=== PATIENT | male | born 2000 | race Caucasian/White ===

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

== ENCOUNTER 2020-02-03 23:39 | Inpatient (IN) | payer MEDICAID, OTHER ==
[~2020-02-03] VITALS: Ht 172.7 cm; Wt 67.5 kg
[~2020-02-03 23:39] MED LIST changes: +MIRT-89 PO; -MIRT45TA PO
[2020-02-04 01:03] LABS: BASOPHILS % (AUTO) 0.6 % (0.0-2.0); EOSINOPHILS % (AUTO) 2.1 % (1.0-6.0); HEMATOCRIT 43.9 % (41-53); HEMOGLOBIN 14.9 g/dL (13.5-17.5); LYMPHOCYTES # (AUTO) 3.6 K/uL (1.0-4.8); LYMPHOCYTES % (AUTO) 33.9 % (22.0-44.0); MEAN CORPUSCULAR HEMOGLOBIN 29.4 pg (26.0-34.0); MEAN CORPUSCULAR HGB CONC 33.9 G/dL (31.0-37.0); MEAN CORPUSCULAR VOLUME 87 fL (80-100); MONOCYTES % (AUTO) 9.4 % (2.0-9.0); NEUTROPHILS # (AUTO) 5.7 K/uL (1.8-7.7); PLATELET COUNT (AUTO) 494 K/uL (150-450); RED BLOOD CELL COUNT(AUTO) 5.07 MIL/uL (4.50-5.90); RED CELL DISTRIBUTION WIDTH 14.2 % (11.5-14.5)
[2020-02-04 01:12] LABS: ANION GAP 9 mmol/L (8-16); CALCIUM, TOTAL 10.3 mg/dL (8.8-10.5); CARBON DIOXIDE 29 mmol/L (22-29); CHLORIDE 100 mmol/L (98-107); CREATININE 0.91 mg/dL (0.60-1.30); GLOMERULAR FILTR. RATE CALC > 60 mL/min (>60); GLUCOSE,RANDOM 118 mg/dL (70-110); SODIUM SERUM 138 mmol/L (136-145); UREA NITROGEN, BLOOD 28 mg/dL (7-18)
[2020-02-04 01:31] LABS: ALANINE AMINOTRANSFERASE 30 U/L (12-78); ALBUMIN 4.6 g/dL (3.4-5.0); ALKALINE PHOSPHATASE 146 U/L (46-116); ASPARTATE AMINOTRANSFERASE 31 U/L (15-37); BILIRUBIN,TOTAL 0.4 mg/dL (0.1-1.0); TOTAL PROTEIN, SERUM 9.9 g/dL (6.4-8.2)
[2020-02-04 01:59] LABS: AMPHET/METH SCREEN,URINE POSITIVE (NEGATIVE); BARBITURATE SCREEN, URINE NEGATIVE (NEGATIVE); BENZODIAZEPINES SCREEN,URINE NEGATIVE (NEGATIVE); CANNABINOID SCREEN,URINE NEGATIVE (NEGATIVE); COCAINE SCREEN,URINE NEGATIVE (NEGATIVE); METHADONE SCREEN, URINE NEGATIVE (NEGATIVE); OPIATE SCREEN,URINE POSITIVE (NEGATIVE); PHENCYCLIDINE SCREEN,URINE NEGATIVE (NEGATIVE)
[2020-02-04] MEDS ORDERED: ZOLPIDEM TARTRATE 10 MG TABLET PO PRN (02:00)
[2020-02-04 03:32] VITALS: BP 146/93
[2020-02-04 05:00] LABS: APPEARANCE,URINE TURBID (CLEAR); BILIRUBIN,URINE NEGATIVE (NEGATIVE); GLUCOSE, URINE (UA) NEGATIVE (NEGATIVE); KETONES,URINE NEGATIVE (NEGATIVE); LEUKOCYTE ESTERASE ,URINE NEGATIVE (NEGATIVE); NITRATE,URINE NEGATIVE (NEGATIVE); OCCULT BLOOD,URINE NEGATIVE (NEGATIVE); PH,URINE 5.5 (5.0-8.0); PROTEIN,URINE SEE CONFIRM (NEGATIVE); UROBILINOGEN,URINE 0.2 mg/dL (<=1.0)
[2020-02-04 05:12] LABS: SULFOSALICYLIC ACID,URINE 3+ (Negative)
[2020-02-04 05:13] LABS: BACTERIA,URINE Many /HPF (None Seen); RBC,URINE None Seen /HPF (0-2); WBC,URINE 0-2 /HPF (0-5)
[2020-02-04 05:14] LABS: SQUAMOUS EPITHELIAL CELL,UR Few /LPF (None Seen); YEAST,URINE None Seen /HPF (None Seen)
[2020-02-04 08:00] VITALS: BP 131/79
[2020-02-04] MEDS ORDERED: DOCUSATE SODIUM 100 MG CAPSULE PO PRN (12:45)
[2020-02-04] MEDS ORDERED: ALBUTEROL SULFATE HFA 90 MCG/PUFF 8 GM INHALER IH PRN (12:45)
[2020-02-04] MEDS ORDERED: OMEPRAZOLE 20 MG CAPSULE PO PRN (12:45)
[2020-02-04] MEDS ORDERED: BENZOCAINE/MENTHOL LOZENGE MM PRN (12:45)
[2020-02-04] MEDS ORDERED: ACETAMINOPHEN 325 MG TABLET PO PRN (12:45)
[2020-02-04] MEDS ORDERED: BACITRACIN 28.4 GM OINTMENT TP PRN (12:45)
[2020-02-04] MEDS ORDERED: PETROLATUM,WHITE 28 GM JELLY TP PRN (12:45)
[2020-02-04] MEDS ORDERED: ONDANSETRON HCL 4 MG TABLET PO PRN (12:45)
[2020-02-04] MEDS ORDERED: MAG HYDROX/AL HYDROX/SIMETH ES 30 ML SUSPENSION UDCUP PO PRN (12:45)
[2020-02-04] MEDS ORDERED: LOPERAMIDE HCL 2 MG CAPSULE PO PRN (12:45)
[2020-02-04] MEDS ORDERED: CloNIDine HCL 0.1 MG TABLET PO PRN (12:45)
[2020-02-04] MEDS ORDERED: IBUPROFEN 600 MG TABLET PO PRN (12:45)
[2020-02-04] MEDS ORDERED: MAGNESIUM HYDROXIDE SUSPENSION 30 ML UDCUP PO PRN (12:45)
[2020-02-04 17:10] VITALS: BP 148/94
[2020-02-04] MEDS: HALOPERIDOL 5 MG TABLET PO PRN (20:06)
[2020-02-04] MEDS: LORazepam 2 MG TABLET PO PRN (20:07)
[2020-02-04 21:00] VITALS: BP 129/97
[2020-02-05 11:08] VITALS: BP 150/83
[2020-02-05 16:00] VITALS: BP 154/53
[2020-02-05] MEDS: HALOPERIDOL 5 MG TABLET PO PRN (20:53)
[2020-02-05] MEDS: LORazepam 2 MG TABLET PO PRN (20:53)
[2020-02-06 00:41] VITALS: BP 126/79
[2020-02-06 11:11] VITALS: BP 134/65
[2020-02-06 16:30] VITALS: BP 130/83
[2020-02-06] MEDS: OLANZapine 7.5 MG TABLET PO SCH (20:43)
[2020-02-07] MEDS: HALOPERIDOL 5 MG TABLET PO PRN (00:15)
[2020-02-07 01:02] VITALS: BP 156/81
[2020-02-07 08:46] VITALS: BP 147/76
[2020-02-07 16:30] VITALS: BP 125/66
[2020-02-07] MEDS: OLANZapine 7.5 MG TABLET PO SCH (21:32)
[2020-02-08] MEDS: HALOPERIDOL 5 MG TABLET PO PRN (00:01)
[2020-02-08 00:16] VITALS: BP 118/80
[2020-02-08 16:45] VITALS: BP 158/100
[2020-02-08] MEDS: OLANZapine 7.5 MG TABLET PO SCH (21:00)
[2020-02-09 04:35] VITALS: BP 125/77
[2020-02-09 08:30] VITALS: BP 134/81
[2020-02-09] MEDS: ATENOLOL 50 MG TABLET PO SCH (08:45)
[2020-02-09] MEDS: ASPIRIN 81 MG EC TABLET PO SCH (08:45)
[2020-02-09 17:23] VITALS: BP 115/68
[2020-02-09] MEDS: OLANZapine 7.5 MG TABLET PO SCH (20:10)
[2020-02-10 01:10] VITALS: BP 128/94
[2020-02-10] MEDS: ASPIRIN 81 MG EC TABLET PO SCH (09:00)
[2020-02-10] MEDS: ATENOLOL 50 MG TABLET PO SCH (09:00)
[2020-02-10 09:30] VITALS: BP 146/96
[2020-02-10 16:49] VITALS: BP 129/79
[2020-02-10] MEDS: OLANZapine 7.5 MG TABLET PO SCH (20:06)
[2020-02-11] MEDS: ASPIRIN 81 MG EC TABLET PO SCH (09:00)
[2020-02-11 10:05] VITALS: BP 111/67
[2020-02-11 19:35] VITALS: BP 113/57
[2020-02-11] MEDS: OLANZapine 7.5 MG TABLET PO SCH (20:24)
[2020-02-11] MEDS: LORazepam 2 MG TABLET PO PRN (23:49)
[2020-02-12 00:47] VITALS: BP 132/71
[2020-02-12] MEDS: ASPIRIN 81 MG EC TABLET PO SCH (09:00)
[2020-02-12] MEDS ORDERED: OLAN7.5T2 PO (09:01)
[2020-02-12] MEDS ORDERED: ASPI-728 PO (12:02)
== END 2020-02-12 13:15 | disposition home or self-care (01) | DRG 885 ==
LOC: EMS 23:39 → 3EI 02-04 02:40
PROVIDERS: ADMIT Psychiatry & Neurology Psychiatry; ATTEND Psychiatry & Neurology Psychiatry
DX: F25.1 Schizoaffective disorder, depressive type (principal); Z59.0 Homelessness; Z87.891 Personal history of nicotine dependence; Z91.14 Patient's other noncompliance with medication regimen; F12.90 Cannabis use, unspecified, uncomplicated; F41.9 Anxiety disorder, unspecified
CPT/HCPCS: 87086; G0480

== ENCOUNTER 2022-10-20 18:17 | Emergency (ER) | payer MEDICAID ==
[~2022-10-20] VITALS: Ht 172.7 cm; Wt 63.6 kg
[~2022-10-20 18:17] MED LIST changes: -ARIP15TA2 PO; +ASPI-1450 PO; -MIRT-89 PO; +OLAN7.5T22 PO
[2022-10-20] MEDS ORDERED: DiphenhydrAMINE HCL 50 MG/ML VIAL IM ONE (18:30)
[2022-10-20] MEDS ORDERED: HALOPERIDOL LACTATE 5 MG/ML VIAL IM ONE (18:30)
[2022-10-20] MEDS ORDERED: LORazepam 2 MG/ML VIAL IM ONE (18:30)
[2022-10-20 18:55] LABS: BASOPHILS % (AUTO) 0.2 % (0.0-2.0); EOSINOPHILS % (AUTO) 0.2 % (1.0-6.0); HEMATOCRIT 42.5 % (41-53); LYMPHOCYTES # (AUTO) 1.6 K/uL (1.0-4.8); MEAN CORPUSCULAR HEMOGLOBIN 29.3 pg (26.0-34.0); MEAN CORPUSCULAR VOLUME 89 fL (80-100); MONOCYTES # (AUTO) 1.3 K/uL (0.1-1.0); MONOCYTES % (AUTO) 8.5 % (2.0-9.0); NEUTROPHILS # (AUTO) 11.9 K/uL (1.8-7.7); NEUTROPHILS % (AUTO) 80.1 % (40.0-70.0); PLATELET COUNT (AUTO) 429 K/uL (150-450); RED BLOOD CELL COUNT(AUTO) 4.79 MIL/uL (4.50-5.90); RED CELL DISTRIBUTION WIDTH 13.2 % (11.5-14.5)
[2022-10-20 19:05] LABS: ANION GAP 8 mmol/L (8-16); CALCIUM, TOTAL 9.1 mg/dL (8.8-10.5); CARBON DIOXIDE 27 mmol/L (22-29); CHLORIDE 99 mmol/L (98-107); CREATININE 0.89 mg/dL (0.60-1.30); GLOMERULAR FILTR. RATE CALC > 60 mL/min (>60); GLUCOSE,RANDOM 97 mg/dL (70-110); POTASSIUM 3.2 mmol/L (3.5-5.1); SODIUM SERUM 134 mmol/L (136-145); UREA NITROGEN, BLOOD 25 mg/dL (7-18)
[2022-10-20 19:12] LABS: ALANINE AMINOTRANSFERASE 26 U/L (12-78); ALBUMIN 4.3 g/dL (3.4-5.0); ALKALINE PHOSPHATASE 151 U/L (46-116); ASPARTATE AMINOTRANSFERASE 30 U/L (15-37); BILIRUBIN,TOTAL 0.2 mg/dL (0.1-1.0); TOTAL PROTEIN, SERUM 9.5 g/dL (6.4-8.2)
[2022-10-20 20:09] LABS: COVID AG,FIA SOURCE NASOPHARYNGEAL
[2022-10-20 22:04] VITALS: BP 108/57
== END 2022-10-21 01:37 | disposition home or self-care (01) ==
LOC: EMS 18:18
DX: F69 Unspecified disorder of adult personality and behavior (principal); F15.90 Other stimulant use, unspecified, uncomplicated; R62.50 Unspecified lack of expected normal physiological development in childhood; R45.851 Suicidal ideations; F41.9 Anxiety disorder, unspecified; F32.A Depression, unspecified; F20.9 Schizophrenia, unspecified; F17.210 Nicotine dependence, cigarettes, uncomplicated; F12.90 Cannabis use, unspecified, uncomplicated; Z91.14 Patient's other noncompliance with medication regimen; Z20.822 Contact with and (suspected) exposure to COVID-19
CPT/HCPCS: 99291; 87426; 80053; 85025; 36415; 96372; G0480; J1200; J1630; J2060